=== PATIENT | female | born 1940 | race Caucasian/White ===

== ENCOUNTER 2016-12-16 09:25 | Observation (INO) ==
[2016-12-16 09:55] LABS: Immature Granulocytes % 0.3 % (0-4); Mean Corpuscular HGB Conc 31.7 g/dL (31.6-35.5); Mean Corpuscular Volume 93.2 fL (83.0-100.0); Red Cell Distribution Width 14.3 % (11.5-14.5)
[2016-12-16 09:57] LABS: Basophils % 0.2 %; Eosinophils # 0.1 K/mcL (0.0-0.6); Eosinophils % 2.4 %; Lymphocytes % 21.4 %; Mean Corpuscular Hemoglobin 29.5 pg (28.0-33.3); Monocytes # 0.4 K/mcL (0.0-1.3); Monocytes % 6.9 %; Platelet Count 54 K/mcL (140-400); Segmented Neutrophils % 68.8 %
[2016-12-16 09:58] LABS: Lymphocytes # 1.2 K/mcL (0.6-4.6)
[2016-12-16 10:06] LABS: BUN/Creatinine Ratio 25 (6-26); Blood Urea Nitrogen 22 mg/dL (7-20); Calcium 9.6 mg/dL (8.6-10.8); Carbon Dioxide 25 mEq/L (19-29); Chloride 107 mEq/L (98-109); Glucose 130 mg/dL (70-99); Osmolality,Calculated 299 (280-300); Potassium 3.1 mEq/L (3.5-4.5); Sodium 142 mEq/L (136-145); eGFR For African Americans > 60 (> 60); eGFR For Non-African Americans > 60 (> 60)
[2016-12-16 10:10] LABS: Bilirubin,Urine Negative (Negative); Blood,Urine Moderate (Negative); Clarity,Urine Cloudy (Clear); Color,Urine Yellow (Yellow); Glucose,Urine (UA) Normal (Normal); Ketones,Urine Negative (Negative); Leukocyte Esterase,Urine Small (Negative); Nitrite,Urine Negative (Negative); Protein,Urine Negative (Neg-Trace); Specific Gravity,Urine 1.012 (1.010-1.025); Urobilinogen,Urine Normal (Normal)
[2016-12-16 10:15] LABS: Bacteria,Urine Few per hpf (None-Few); Hyaline Casts,Urine None Seen per lpf (None-Few); Squamous Epithelial Cell,Urine Many per lpf (None-Few)
[2016-12-16] MEDS ORDERED: dilTIAZem HCl 60 MG TABLET PO ONE (10:16)
[2016-12-16 10:21] LABS: Platelet Estimate Decreased (Normal)
--- NOTE | 2016-12-16 10:25 | Emergency Department Note ---
Disposition Clinical Impression: Atrial fibrillation with RVR, Thrombocytopenia Hematuria Qualifiers: Hematuria type: unspecified type Qualified Code(s): R31.9 - Hematuria, unspecified Disposition: Admitted As Inpatient Condition: Good Time of Disposition: 10:48 General Adult HPI - General Chief complaint: ED Arrhythmia/Palpitations Stated complaint: SVT/palpitations Time Seen by Provider: 12/16/16 09:29 Source: patient Limitations: no limitations Nursing Notes Reviewed: Yes Vital Signs Reviewed: Yes - History of Present Illness HPI Narrative: 76-year-old female presenting to the emergency department with chief complaint of heart palpitations. Patient states this morning when she woke up she felt like her heart was racing. This has happened numerous times in the past. She does follow with cardiology but is not on any anticoagulation at this time. She is on metoprolol and Cardizem. Patient denies shortness of breath, chest pain or any other systemic symptoms. She denies any urinary symptoms or nausea or vomiting. She states this has happened numerous times in the past and normally does goes away on its own. Pain Scale: 0 - Related Data Allergies Allergy/AdvReac Type Severity Reaction Status Date / Time No Known Allergies Allergy Verified 12/16/16 09:27 All systems ED: reviewed and negative except as stated. Constitutional: Denies: fever, chills, weakness Eyes: Reports: as per HPI ENT ED: Reports: as per HPI Cardiovascular: Reports: palpitations. Denies: chest pain, dyspnea on exertion Respiratory: Denies: cough, dyspnea, wheezes Gastrointestinal: Denies: abdominal pain, nausea, vomiting Genitourinary: Denies: urgency, dysuria, frequency Musculoskeletal: Reports: as per HPI Integumentary: Reports: as per HPI Neurological: Denies: headache, weakness, numbness, paresthesias Psychiatric: Reports: as per HPI Endocrine: Reports: as per HPI Hematological/Lymphatic: Reports: as per HPI Allergic/Immunologic: Reports: as per HPI Past Medical History - Past Medical History Attestation: Yes The following information was validated with the patient. Medical history: Reports: asthma, diabetes, hypertension, SVT - Social History Smoking Status: Never smoker Alcohol use: Reports: none Drug use: Reports: none Physical Exam - General Limitations: no limitations General appearance: alert, in no apparent distress - Head Head exam: atraumatic, normocephalic, normal inspection - Eye Eye exam: Present: normal appearance. Absent: scleral icterus, conjunctival injection - Chest Chest inspection: Present: normal inspection, symmetric chest wall rise. Absent : tenderness, rash - Respiratory Respiratory exam: Present: normal lung sounds bilaterally. Absent: respiratory distress, wheezes, stridor - Cardiovascular Cardiovascular exam: Present: tachycardia, irregular rhythm, normal heart sounds - Abdominal Exam Abdominal exam: Present: soft, Non-Tender. Absent: distention, guarding, rebound - Extremities Exam Extremities exam: Present: normal inspection, full ROM - Back Exam Back exam: Present: normal inspection. Absent: CVA tenderness (R), CVA tenderness (L) - Neurological Exam Neurological exam: Present: alert, oriented X3 - Psychiatric Psychiatric exam: Present: normal affect, normal mood - Skin Skin exam: Present: warm, intact Course Course Narrative: 76-year-old female presenting to the emergency department via EMS for A. fib with RVR. Patient has history of A. fib with RVR. Cardizem drip was started after Cardizem bolus. Patient not rate controlled yet. Once lab work came back thrombocytopenia was noted with hematuria in the urine. Patient states she has not had any urinary tract infectious symptoms. Patient has known thrombocytopenia from methotrexate treatment for rheumatoid arthritis. She does not know her last known platelets. We will plan to admit the patient at this time for A. fib with RVR and hematuria with thrombocytopenia. - Reevaluation(s) Reevaluation #1: Dr. Alegria the hospitalist accepts the patient. Patient still tachycardic in the room. Cardizem drip running. Patient alert and oriented 3 otherwise stable at this time. Time: 10:48 Vital Signs Temperature 97.5 F L 12/16/16 09:26 Pulse Rate 126 12/16/16 09:26 Respiratory Rate 20 12/16/16 09:26 Blood Pressure 155/87 12/16/16 09:26 O2 Sat by Pulse Oximetry 97 12/16/16 09:26 Temperature 97.9 F 12/16/16 19:39 Pulse Rate 67 12/16/16 19:39 Respiratory Rate 16 12/16/16 19:39 Blood Pressure 138/71 12/16/16 19:39 O2 Sat by Pulse Oximetry 97 12/16/16 19:39 Oxygen Delivery Oxygen Delivery Room Air Medical Decision Making - Lab Data Result diagrams: 12/16/16 09:47 12/16/16 09:47 Lab Results 12/16/16 12/16/16 12/16/16 Range/Units 09:35 09:47 09:47 WBC 5.8 (4.3-11.1) K/mcL RBC 4.40 (3.82-4.97) M/mcL Hgb 13.0 (11.5-15.4) g/dL Hct 41.0 (35.3-44.9) % MCV 93.2 (83.0-100.0) fL MCH 29.5 (28.0-33.3) pg MCHC 31.7 (31.6-35.5) g/dL RDW 14.3 (11.5-14.5) % Plt Count 54 L (140-400) K/mcL MPV TNP Immature Gran % 0.3 (0-4) % Seg Neutrophils % 68.8 % Lymphocytes % 21.4 % Monocytes % 6.9 % Eosinophils % 2.4 % Basophils % 0.2 % Neutrophils # 4.0 (1.6-8.9) K/mcL Lymphocytes # 1.2 (0.6-4.6) K/mcL Monocytes # 0.4 (0.0-1.3) K/mcL Eosinophils # 0.1 (0.0-0.6) K/mcL Basophils # 0.0 (0.0-0.2) K/mcL Platelet Estimate Decreased L (Normal) Immature Plt Fraction 27.0 H (1.1-6.1) % Sodium (136-145) mEq/L Potassium (3.5-4.5) mEq/L Chloride (98-109) mEq/L Carbon Dioxide (19-29) mEq/L BUN (7-20) mg/dL Creatinine (0.57-1.11) mg/dL Est GFR ( Amer) (> 60) Est GFR (Non-Af Amer) (> 60) BUN/Creatinine Ratio (6-26) Glucose (70-99) mg/dL Calculated Osmolality (280-300) Calcium (8.6-10.8) mg/dL Magnesium (1.6-2.6) mg/dL Troponin I (0-0.03) ng/mL B-Natriuretic Peptide 58 (0-100) pg/mL Urine Color Yellow (Yellow) Urine Clarity Cloudy A (Clear) Urine pH 7.0 (5.0-8.0) pH Units Ur Specific [place] 1.012 (1.010-1.025) Urine Protein Negative (Neg-Trace) mg/dL Urine Glucose (UA) Normal (Normal) mg/dL Urine Ketones Negative (Negative) mg/dL Urine Blood Moderate H (Negative) Urine Nitrite Negative (Negative) Urine Bilirubin Negative (Negative) Urine Urobilinogen Normal (Normal) mg/dL Ur Leukocyte Esterase Small H (Negative) Urine Microscopic RBC 5-15 H (0-3) per hpf Urine Microscopic WBC 5-15 H (0-3) per hpf Ur Squamous Epith Cells Many H (None-Few) per lpf Urine Bacteria Few (None-Few) per hpf Hyaline Casts None Seen (None-Few) per lpf Ur Culture Indicated? YES A (NO) 12/16/16 12/16/16 Range/Units 09:47 09:47 WBC (4.3-11.1) K/mcL RBC (3.82-4.97) M/mcL Hgb (11.5-15.4) g/dL Hct (35.3-44.9) % MCV (83.0-100.0) fL MCH (28.0-33.3) pg MCHC (31.6-35.5) g/dL RDW (11.5-14.5) % Plt Count (140-400) K/mcL MPV Immature Gran % (0-4) % Seg Neutrophils % % Lymphocytes % % Monocytes % % Eosinophils % % Basophils % % Neutrophils # (1.6-8.9) K/mcL Lymphocytes # (0.6-4.6) K/mcL Monocytes # (0.0-1.3) K/mcL Eosinophils # (0.0-0.6) K/mcL Basophils # (0.0-0.2) K/mcL Platelet Estimate (Normal) Immature Plt Fraction (1.1-6.1) % Sodium 142 (136-145) mEq/L Potassium 3.1 L (3.5-4.5) mEq/L Chloride 107 (98-109) mEq/L Carbon Dioxide 25 (19-29) mEq/L BUN 22 H (7-20) mg/dL Creatinine 0.88 (0.57-1.11) mg/dL Est GFR ( Amer) > 60 (> 60) Est GFR (Non-Af Amer) > 60 (> 60) BUN/Creatinine Ratio 25 (6-26) Glucose 130 H (70-99) mg/dL Calculated Osmolality 299 (280-300) Calcium 9.6 (8.6-10.8) mg/dL Magnesium 1.6 (1.6-2.6) mg/dL Troponin I 0.01 (0-0.03) ng/mL B-Natriuretic Peptide (0-100) pg/mL Urine Color (Yellow) Urine Clarity (Clear) Urine pH (5.0-8.0) pH Units Ur Specific [place] (1.010-1.025) Urine Protein (Neg-Trace) mg/dL Urine Glucose (UA) (Normal) mg/dL Urine Ketones (Negative) mg/dL Urine Blood (Negative) Urine Nitrite (Negative) Urine Bilirubin (Negative) Urine Urobilinogen (Normal) mg/dL Ur Leukocyte Esterase (Negative) Urine Microscopic RBC (0-3) per hpf Urine Microscopic WBC (0-3) per hpf Ur Squamous Epith Cells (None-Few) per lpf Urine Bacteria (None-Few) per hpf Hyaline Casts (None-Few) per lpf Ur Culture Indicated? (NO) Attestation Statement - Attestation Attestation: I examined this patient and my medical decision-making was reviewed with the Resident Physician. I agree with the documented findings, disposition and treatment plan as described except to the extent set forth below. Female patient with findings of rapid atrial fibrillation. She has not taken her Cardizem or metoprolol today. She has baseline thrombocytopenia. I would defer anticoagulation due to hematuria and thrombocytopenia. She does have chronic atrial fibrillation. Heart rate was controlled with administration of Cardizem. She was given her home medications including both by mouth Cardizem and metoprolol. She had heart rate under 100 at time of disposition from the emergency department. Will admit for further evaluation of A. fib with rapid ventricular response in the setting of thrombocytopenia and hematuria. I spent greater than 35 minutes of critical care time resuscitating this acutely ill patient suffering from hematuria, thrombocytopenia, rapid atrial fibrillation with ventricular response. This was excluding billable procedures.
[2016-12-16] MEDS ORDERED: cephALEXin 250 MG CAPSULE PO ONE (10:26)
[2016-12-16 10:32] LABS: Magnesium 1.6 mg/dL (1.6-2.6)
[2016-12-16] MEDS ORDERED: Diltiazem CD (24hr) 240 MG CAPSULE PO ONE (10:45)
--- NOTE | 2016-12-16 11:11 | Internal Med History&Physical ---
Date of Encounter: 12/16/16 Time of Encounter: 11:09 Assessment and Plan (1) Rheumatoid arthritis Current visit: Yes Status: Acute Patient is on immuno suppressive medications Qualifiers: Qualified Code(s): M06.9 - Rheumatoid arthritis, unspecified (2) Atrial fibrillation with RVR Current visit: Yes Status: Acute Patient had spontaneously cardioverter to normal sinus rhythm during my interview. Heart rate 80s. I will discontinue Cardizem drip. Continue home medications including Cardizem and metoprolol (3) Hematuria Current visit: Yes Status: Acute Patient is symptomatic. Has some puzzles and urine however sample is also contaminated. Will check urine culture. hold of antibiotic for now. Qualifiers: Hematuria type: unspecified type Qualified Code(s): R31.9 - Hematuria, unspecified (4) Thrombocytopenia Current visit: Yes Status: Acute Likely related to methotrexate therapy. However we do not have baseline. Will attempt to get outside records to see her baseline platelet count. Denies bleeding from anywhere Internal Medicine - H&P: HPI Chief complaint: palpitations History of present illness: Ms. White is a 76 year old female with multiple medical problems including rheumatoid arthritis on immunosuppressive medications, hypertension, paroxysmal atrial fibrillation on aspirin for stroke prophylaxis, thrombocytopenia thought to be related to methotrexate therapy presents the emergency room today with the main complaint palpitations. Approximately 7 AM patient started noticing palpitations which she described as rapid and irregular. She took her heart rate at home and noticed that it is 150 beat per minute. Patient was found to be in a atrial fibrillation with rapid ventricular response on arrival to the emergency room. Patient denies any other complains. No shortness of breath cough expectoration fever chills. Patient also denies urinary symptoms suggesting infection. 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 Past Med Surg Social Fam HX - Past Medical History Medical history: asthma, diabetes, hypertension, SVT - Social History Smoking Status: Never smoker Alcohol use: none Drug use: none Internal Medicine - H&P: Meds Adalimumab [Humira] 40 mg SQ Q2W 12/16/16 [History] Aspirin [Lo-Dose Aspirin EC] 81 mg PO DAILY 12/16/16 [History] Calcium Carbonate [Calcium] 1,200 mg PO DAILY 12/16/16 [History] Cholecalciferol (D-3) [Vitamin D] 2,000 unit PO DAILY 12/16/16 [History] Difluprednate [Durezol] 1 drop OP QAM 12/16/16 [History] Diltiazem HCl [Diltiazem 24Hr Cd] 240 mg PO DAILY 12/16/16 [History] Docusate Sodium [Dok] 100 mg PO DAILY PRN 12/16/16 [History] Methotrexate [Otrexup] 10 mg PO QWEEK 12/16/16 [History] Metoprolol [Lopressor] 50 mg PO DAILY 12/16/16 [History] Olmesartan Medoxomil [Benicar] 40 mg PO DAILY 12/16/16 [History] Simvastatin [Zocor] 10 mg PO DAILY 12/16/16 [History] hydroCHLOROthiazide [Hydrochlorothiazide] 25 mg PO DAILY 12/16/16 [History] 3 Allergy/AdvReac Type Severity Reaction Status Date / Time No Known Allergies Allergy Verified 12/16/16 09:27 All Systems PM: A 10-system review of systems was performed and is negative for pertinent findings except as documented above in the HPI. Review of systems: 10 point review systems is negative except for HPI - Constitutional Vitals: Temp Pulse Resp BP Pulse Ox 97.5 F L 70 18 125/103 98 12/16/16 09:26 12/16/16 10:54 12/16/16 10:54 12/16/16 10:54 12/16/16 10:54 Exam: Gen.: patient is alert oriented times 3 cardiac: normal S1 S2 no additional sounds or murmurs chest: no active wheezing or bronchial breathing abdomen soft nontender nondistended normal bowel sounds lower extremity no swelling. Neuro: no new focal deficits Internal Med - H&P Results - Labs CBC & Chem 7: 12/16/16 09:47 12/16/16 09:47 Labs: Short CBC 12/16/16 Range/Units 09:47 WBC 5.8 (4.3-11.1) K/mcL Hgb 13.0 (11.5-15.4) g/dL Hct 41.0 (35.3-44.9) % Plt Count 54 L (140-400) K/mcL Neutrophils # 4.0 (1.6-8.9) K/mcL BMP 12/16/16 09:47 Sodium 142 Potassium 3.1 L Chloride 107 Carbon Dioxide 25 BUN 22 H Creatinine 0.88 Glucose 130 H Calcium 9.6 Cardiac Enzymes 12/16/16 Range/Units 09:47 Troponin I 0.01 (0-0.03) ng/mL Urine 12/16/16 Range/Units 09:35 Urine Color Yellow (Yellow) Urine Clarity Cloudy A (Clear) Urine pH 7.0 (5.0-8.0) pH Units Ur Specific [place] 1.012 (1.010-1.025) Urine Protein Negative (Neg-Trace) mg/dL Urine Glucose (UA) Normal (Normal) mg/dL - Impressions ITS Impressions Chest X-Ray 12/16/16 09:30 IMPRESSION: No acute cardiopulmonary process identified. D/ / Oscar Duenas MD / Oscar Duenas MD Interpreting Provider: Oscar Duenas MD
[2016-12-17] MEDS ORDERED: Acetaminophen 325 MG TABLET PO PRN (04:27)
[2016-12-17 05:03] LABS: BUN/Creatinine Ratio 26 (6-26); Blood Urea Nitrogen 20 mg/dL (7-20); Calcium 8.6 mg/dL (8.6-10.8); Carbon Dioxide 25 mEq/L (19-29); Chloride 109 mEq/L (98-109); Glucose 98 mg/dL (70-99); Magnesium 2.1 mg/dL (1.6-2.6); Osmolality,Calculated 295 (280-300); Potassium 3.8 mEq/L (3.5-4.5); Sodium 141 mEq/L (136-145); eGFR For African Americans > 60 (> 60); eGFR For Non-African Americans > 60 (> 60)
[2016-12-17 05:06] LABS: Basophils % 0.4 %; Eosinophils # 0.2 K/mcL (0.0-0.6); Eosinophils % 2.6 %; Hematocrit 39.1 % (35.3-44.9); Hemoglobin 12.6 g/dL (11.5-15.4); Immature Granulocytes % 0.4 % (0-4); Lymphocytes % 24.3 %; Mean Corpuscular HGB Conc 32.2 g/dL (31.6-35.5); Mean Corpuscular Hemoglobin 30.5 pg (28.0-33.3); Mean Corpuscular Volume 94.7 fL (83.0-100.0); Monocytes # 0.7 K/mcL (0.0-1.3); Monocytes % 8.3 %; Neutrophils # 5.2 K/mcL (1.6-8.9); Red Blood Count 4.13 M/mcL (3.82-4.97); Red Cell Distribution Width 14.6 % (11.5-14.5)
[2016-12-17 05:10] LABS: Platelet Count 56 K/mcL (140-400)
[2016-12-17 05:26] LABS: Thyroid Stimulating Hormone 2.484 mcIU/mL (0.350-4.840)
[2016-12-17 05:42] LABS: Large Platelets Present (Not Present); Platelet Estimate Decreased (Normal)
[2016-12-17 07:13] VITALS: BP 139/69
--- NOTE | 2016-12-17 08:48 | Discharge Summary ---
Date of Encounter: 12/17/16 Time of Encounter: 08:43 - Discharge Diagnosis (1) Atrial fibrillation with RVR Priority: Primary Status: Acute Comments: Likely triggered by UTI (2) UTI (urinary tract infection) Priority: Secondary Status: Acute Comments: Feeling better after one dose of Keflex Qualifiers: Urinary tract infection type: acute cystitis Hematuria presence: with hematuria Qualified Code(s): N30.01 - Acute cystitis with hematuria (3) Hematuria Priority: Secondary Status: Acute Qualifiers: Hematuria type: unspecified type Qualified Code(s): R31.9 - Hematuria, unspecified (4) Thrombocytopenia Priority: Secondary Status: Acute (5) Rheumatoid arthritis Priority: Secondary Status: Acute Qualifiers: Rheumatoid arthritis location: unspecified site Rheumatoid factor presence : unspecified presence Qualified Code(s): M06.9 - Rheumatoid arthritis, unspecified - Discharge Medications Prescriptions: cephALEXin [Keflex] 500 mg PO BID #8 capsule Metoprolol XL (24 HR) Succ [Toprol Xl] 50 mg PO DAILY #30 tab.er.24h Home Medications: Adalimumab [Humira] 40 mg SQ Q2W 12/16/16 [History] Aspirin [Lo-Dose Aspirin EC] 81 mg PO DAILY 12/16/16 [History] Calcium Carbonate [Calcium] 1,200 mg PO DAILY 12/16/16 [History] Cholecalciferol (D-3) [Vitamin D] 2,000 unit PO DAILY 12/16/16 [History] Difluprednate [Durezol] 1 drop OP QAM 12/16/16 [History] Diltiazem HCl [Diltiazem 24Hr Cd] 240 mg PO DAILY 12/16/16 [History] Docusate Sodium [Dok] 100 mg PO DAILY PRN 12/16/16 [History] Methotrexate [Otrexup] 10 mg PO QWEEK 12/16/16 [History] Olmesartan Medoxomil [Benicar] 40 mg PO DAILY 12/16/16 [History] Simvastatin [Zocor] 10 mg PO DAILY 12/16/16 [History] hydroCHLOROthiazide [Hydrochlorothiazide] 25 mg PO DAILY 12/16/16 [History] Metoprolol XL (24 HR) Succ [Toprol Xl] 50 mg PO DAILY #30 tab.er.24h 12/17/16 [ Rx] cephALEXin [Keflex] 500 mg PO BID #8 capsule 12/17/16 [Rx] Allergies/Adverse Reactions: 3 Allergy/AdvReac Type Severity Reaction Status Date / Time No Known Allergies Allergy Verified 12/16/16 09:27 Date of admission: 12/16/16 11:13 Primary care physician: Felipe Limon MD - Patient Status Disposition: Home, Self-Care Condition: Good Overall status at discharge: patient is back to baseline - Discharge Instructions Follow Up With: Felipe Limon MD [Primary Care Provider] - Additional Instructions: Follow-up with primary care physician within the next 7 days. Follow up with cardiology within the next 2 weeks. Stop metoprolol tartrate and start metoprolol succinate 50 mg daily. Complete 4 more days of Keflex - Diet and Activity Activity: increase activity as tolerated Diet: low fat, low cholesterol Hospital course: Ms. White is a 76 year old female with multiple medical problems including rheumatoid arthritis on immunosuppressive medications, hypertension, paroxysmal atrial fibrillation on aspirin for stroke prophylaxis not on anticoagulation due to thrombocytopenia, thrombocytopenia thought to be related to methotrexate therapy presented to the emergency room with the main complaint palpitations. Approximately yesterday at 7 AM patient started noticing palpitations which she described as rapid and irregular. She took her heart rate at home and noticed that it is 150 beat per minute. Patient was found to be in a atrial fibrillation with rapid ventricular response on arrival to the emergency room. Patient denied any other complains. No shortness of breath cough expectoration fever chills. The patient was found to have minimal hematuria, received 1 dose of Keflex at the emergency room, a Cardizem drip was started and was discontinued as the patient converted to sinus rhythm. She takes Cardizem and metoprolol tartrate 50 g orally once daily at home, she was recommended to switch to Toprol which can be given once daily. Keflex will be continued for possible UTI and the patient is stable to be discharged. - Time Spent with Patient Total time spent providing and/or coordinating discharge services: Greater than 30 minutes (40 min) - Constitutional Vitals: Temp Pulse Resp BP Pulse Ox 97.6 F 62 17 139/69 97 12/17/16 07:09 12/17/16 07:09 12/17/16 07:09 12/17/16 07:09 12/17/16 07:09 General appearance: Present: A&O X 3 - Head Head exam: Present: atraumatic, normocephalic - Eye Eye exam: Present: PERRL, conjuntiva pink, sclera anicteric Pupils: Present: PERRL - Neck Neck exam general surgery: Present: supple, trachea midline. Absent: lymphadenopathy - Respiratory Respiratory exam: Present: CTAB. Absent: accessory muscle use, rales, rhonchi, wheezes - Cardiovascular Cardiovascular exam: Present: RRR, +S1, +S2. Absent: diastolic murmur, gallop, rubs, systolic murmur - GI/Abdominal GI/Abdominal exam: Present: normal bowel sounds, soft, no peritoneal signs. Absent: distended, tenderness - Extremities Exam Extremities exam: Present: warm, radial pulses palpable and symmetrical. Absent : calf tenderness, cyanotic, pedal edema - Neurological Exam Neurological exam: Present: CN II-XII intact, oriented X3, no focal deficits. Absent: pronater drift, facial droop, speech deficit - Skin Skin exam: Present: dry, intact - VTE Documentation of Mechanical Device: Intermittent pneumatic compression device
[2016-12-17] MEDS ORDERED: Valsartan 160 MG TABLET PO SCH (09:00)
[2016-12-17] MEDS ORDERED: Aspirin Enteric Coated 81 MG Tablet PO SCH (09:00)
[2016-12-17] MEDS ORDERED: Diltiazem CD (24hr) 240 MG CAPSULE PO SCH (09:00)
[2016-12-17] MEDS ORDERED: PrednisoLONE Acetate 1% Opth 5 ML BOTTLE BOTH EYES SCH (09:00)
[2016-12-17] MEDS ORDERED: cephALEXin 500 MG CAPSULE PO SCH (09:00)
[2016-12-17] MEDS ORDERED: DUREZOL OP SCH (09:00)
--- NOTE | 2016-12-18 08:10 | Electrocardiograph Report ---
[place] [id number] Test Date: 2016-12-16 Pat Name: Aurelia White Department: 102 Room: 2A37 Gender: F Outpatient Pharmacy Manager: Mary : 1940 Requested By: Bernice Russo Order Number: [id number] Reading MD: Raheem Holder MD Measurements Intervals [place] Rate: 136 P: [place]: 0 QRS: 12 QRSD: 94 T: 71 QT: 292 QTc: 372 Interpretive Statements ATRIAL FIBRILLATION WITH RAPID VENTRICULAR RESPONSE Electronically Signed On 12-18-2016 8:08:56 EDT by Raheem Holder MD
[2016-12-18] MEDS ORDERED: Metoprolol XL (24 HR) Succ 50 MG TAB.ER.24H PO SCH (09:00)
== END 2016-12-17 10:55 | disposition home or self-care (01) ==
LOC: 2ANU 09:25 → EMEROO 09:25 → 2ANU 12:20
PROVIDERS: ADMIT Hospitalist; ATTEND Internal Medicine